=== PATIENT | male | born 1965 | race Caucasian/White ===

== ENCOUNTER 2021-05-31 16:06 | Emergency (ER) | payer OTHER ==
[2021-05-31 19:15] LABS: HEMOGLOBIN 14.9 gm/dl (14.0-17.5); RED BLOOD COUNT 3.82 M/UL (4.20-5.50); WHITE BLOOD COUNT 14.1 K/UL (4.5-11.0)
[2021-05-31 19:18] LABS: BUN/CREATININE RATIO 6 (0-10)
[2021-05-31 21:44] LABS: BODY FLUID SOURCE PERITONEAL; RBC (AUTOMATED) 100 (0-100000); WBC (AUTOMATED) 61 (0-500)
[2021-05-31 21:59] LABS: TOTAL PROTEIN, BODY FLUID 0.2 gm/dL
[2021-06-02 09:21] LABS: HBSAG SCREEN Negative (Negative); HEP A AB, IGM Negative (Negative); HEP B CORE AB, IGM Negative (Negative); HEP C VIRUS AB <0.1 (0.0-0.9)
== END 2021-05-31 23:00 | disposition home or self-care (01) ==
LOC: ER1 16:06
PROVIDERS: Physician Assistant; Physician Assistant Medical
DX: K74.60 Unspecified cirrhosis of liver (principal); R18.8 Other ascites; I10 Essential (primary) hypertension
CPT/HCPCS: 80053; 80074; 82140; 82945; 83605; 83690; 84157; 85025; 85610; 85730; 87040; 87070; 87205; 89051; 93005; 99284